=== PATIENT | female | born 1975 | race African-American/Black ===

== ENCOUNTER 2016-07-15 11:37 | Observation (INO) | payer SELFPAY ==
[~2016-07-15] VITALS: Ht 162.6 cm; Wt 90.0 kg
[2016-07-15] VITALS (9 sets, daily range): BP systolic 127–150; BP diastolic 77–88; PULSE 54–87; RESP 14–21; TEMP 98–98.4; O2SAT 97–100
[~2016-07-15 11:37] MED LIST: LORTA5 PO; PERM5CRE TOP; RIVA20 PO
--- NOTE | 2016-07-15 12:08 | PD ---
HPI Chief Complaint: Chest Pain Time Seen by Provider: 12:05 Travel History International Travel<30 days: No Contact w/Intl Traveler<30days: No Traveled to known affect area: No History of Present Illness HPI 41-year-old female with history of hypertension, CAD, previous [place], previous DVT on Coumadin, presents to the emergency department for evaluation. Patient states that this morning when she woke up her hands were "cramped" closed and it was difficult to open them. She states when she got them up and she ate breakfast and her daughter asked her to go for a walk. During the walk she states that she felt a hot feeling from her feet to her neck. She then developed some lightheadedness and some substernal chest pain. She states she felt as though it is difficult to take a deep breath. She noticed that when she went to call for help her left arm seemed to be heavier. Reports a mild episode of nausea without vomiting. No other focal deficits or weakness. No other symptoms to report. Patient states that her home is in [place] and after her primary care provider is. [facility] Past Medical History Cancer: No Cardiovascular Problems: Yes Cerebrovascular Accident: Yes Deep Vein Thrombosis: Yes Endocrine: No Genitourinary: No Hypertension: Yes (DOESNT TAKE MEDS) Immune Disorder: No Musculoskeletal: Yes Neurologic: Yes Psychiatric: No Reproductive: Yes Respiratory: No Migraines: Yes ?: Not LMP: 07/08/15 Menopausal: No : 6 Para: 6 Tubal Ligation: Yes Past Surgical History Abdominal Surgery: Yes (OSMEL GARCIA 2003) Section: Yes Other Surgery: Yes Social History Alcohol Use: No Tobacco Use: No Substance Use: No Allergies-Medications (Allergen,Severity, Reaction): Coded Allergies: Benadryl (Verified Adverse Reaction, Severe, SHAKINESS, 07/15/16) Ibuprofen (Verified Adverse Reaction, Severe, 07/15/16) JITTERY & NAUSEA Reported Meds & Prescriptions Reported Meds & Active Scripts Active Ferrous Sulfate 325 Mg Tab 325 Mg PO DAILY Reported Trazodone (Trazodone HCl) 100 Mg Tab Unknown Dose PO HS Atorvastatin (Atorvastatin Calcium) 40 Mg Tab 40 Mg PO HS Levetiracetam 500 Mg Tab 500 Mg PO BID Metoprolol Tartrate 25 Mg Tab 25 Mg PO DAILY Gabapentin 100 Mg Cap 100 Mg PO TID Lisinopril 2.5 Mg Tab 2.5 Mg PO DAILY Warfarin 10 Mg Tab 10 Mg PO DAILY Review of Systems Except as stated in HPI: all other systems reviewed are Neg Physical Exam Narrative GENERAL: Well-nourished female patient, ambulatory and in no acute distress SKIN: Warm and dry. HEAD: Atraumatic. Normocephalic. EYES: Pupils equal and round. No scleral icterus. No injection or drainage. ENT: No nasal bleeding or discharge. Mucous membranes pink and moist. NECK: Trachea midline. No JVD. CARDIOVASCULAR: Regular rate and rhythm. No murmur appreciated. RESPIRATORY: No accessory muscle use. Clear to auscultation. Breath sounds equal bilaterally. GASTROINTESTINAL: Abdomen soft, non-tender, nondistended. Hepatic and splenic margins not palpable. MUSCULOSKELETAL: No obvious deformities. No clubbing. No cyanosis. No edema. NEUROLOGICAL: Awake and alert. No obvious cranial nerve deficits. Motor grossly within normal limits. Normal speech. PSYCHIATRIC: Appropriate mood and affect; insight and judgment normal. Data Data Last Documented VS Vital Signs Date Time Temp Pulse Resp B/P Pulse Ox O2 Delivery O2 Flow Rate FiO2 07/15/16 13:19 62 18 129/86 100 Room Air 07/15/16 11:43 98.4 Orders Electrocardiogram (07/15/16 12:03) Basic Metabolic Panel (Bmp) (07/15/16 12:03) Ckmb (Isoenzyme) Profile (07/15/16 12:03) Complete Blood Count With Diff (07/15/16 12:03) Magnesium (Mg) (07/15/16 12:03) Prothrombin Time / Inr (Pt) (07/15/16 12:03) Act Partial Throm Time (Ptt) (07/15/16 12:03) Troponin I (07/15/16 12:03) Chest, Single Ap (07/15/16 12:03) Calcium (07/15/16 12:03) CKMB (07/15/16 12:07) CKMB% (07/15/16 12:07) Cta Thor Abd Aorta W Iv C W3d (07/15/16 ) Beta Hcg (Quant/Titer) (07/15/16 13:15) Ct Brain W/O Iv Contrast(Rout) (07/15/16 ) Iohexol 350 Inj (Omnipaque 350 Inj) (07/15/16 14:48) Admit Order (Ed Use Only) (07/15/16 15:14) Labs Laboratory Tests Test 07/15/16 12:07 White Blood Count 3.9 TH/MM3 Red Blood Count 4.12 MIL/MM3 Hemoglobin 10.4 GM/DL Hematocrit 32.1 % Mean Corpuscular Volume 77.9 FL Mean Corpuscular Hemoglobin 25.1 PG Mean Corpuscular Hemoglobin 32.3 % Concent Red Cell Distribution Width 18.6 % Platelet Count 263 TH/MM3 Mean Platelet Volume 9.2 FL Neutrophils (%) (Auto) 43.6 % Lymphocytes (%) (Auto) 42.7 % Monocytes (%) (Auto) 8.0 % Eosinophils (%) (Auto) 4.6 % Basophils (%) (Auto) 1.1 % Neutrophils # (Auto) 1.7 TH/MM3 Lymphocytes # (Auto) 1.7 TH/MM3 Monocytes # (Auto) 0.3 TH/MM3 Eosinophils # (Auto) 0.2 TH/MM3 Basophils # (Auto) 0.0 TH/MM3 CBC Comment DIFF FINAL Differential Comment Prothrombin Time 27.1 SEC Prothromb Time International 2.4 RATIO Ratio Activated Partial 34.5 SEC Thromboplast Time Sodium Level 142 MEQ/L Potassium Level 4.1 MEQ/L Chloride Level 109 MEQ/L Carbon Dioxide Level 26.6 MEQ/L Anion Gap 6 MEQ/L Blood Urea Nitrogen 15 MG/DL Creatinine 1.22 MG/DL Estimat Glomerular Filtration 58 ML/MIN Rate Random Glucose 91 MG/DL Calcium Level 8.6 MG/DL Magnesium Level 2.0 MG/DL Total Creatine Kinase 160 U/L Creatine Kinase MB LESS THAN 0.5 NG/ML Troponin I LESS THAN 0.02 NG/ML Human Chorionic Gonadotropin, LESS THAN 1 Quant MIU/ML MDM Medical Decision Making Medical Screen Exam Complete: Yes Emergency Medical Condition: Yes Medical Record Reviewed: Yes Differential Diagnosis Electrolyte abnormality versus hypoglycemia versus dehydration versus anxiety versus ACS Narrative Course 41-year-old female presents to the emergency department. Patient appears without distress. Workup was initiated in triage. Once a medical bed becomes available, patient will be transferred and care assumed by that provider. Scripts Ferrous Sulfate 325 Mg [id number] Mg PO DAILY #30 TAB Ref 1 Prov:Birgit Collado 07/15/16 Condition: Stable Ivy Ruiz Jul 15, 2016 12:07
[2016-07-15 12:21] LABS: AUTOMATED NEUTROPHIL # 1.7 TH/MM3 (1.8-7.7); BASOPHIL % 1.1 % (0.0-2.0); EOSINOPHIL # 0.2 TH/MM3 (0-0.4); EOSINOPHIL % 4.6 % (0.0-4.0); HEMATOCRIT 32.1 % (35.0-46.0); HEMO FLAGS DIFF FINAL; LYMPH % 42.7 % (9.0-44.0); LYMPHOCYTE # 1.7 TH/MM3 (1.0-4.8); MEAN CELL VOLUME 77.9 FL (80.0-100.0); MEAN CORPUSCULAR HEMOGLOBIN 25.1 PG (27.0-34.0); MEAN CORPUSCULAR HGB CONC 32.3 % (32.0-36.0); NEUT % 43.6 % (16.0-70.0); PLATELET COUNT 263 TH/MM3 (150-450); RED BLOOD COUNT 4.12 MIL/MM3 (4.00-5.30); RED CELL DISTRIBUTION WIDTH 18.6 % (11.6-17.2); WHITE BLOOD COUNT 3.9 TH/MM3 (4.0-11.0)
[2016-07-15 12:32] LABS: APTT (PATIENT) 34.5 SEC (24.3-30.1); INTERNATIONAL NORMALIZED RATIO 2.4 RATIO; PROTHROMBIN TIME - PATIENT 27.1 SEC (9.8-11.6)
[2016-07-15 12:45] LABS: ANION GAP 6 MEQ/L (5-15); BICARBONATE 26.6 MEQ/L (21.0-32.0); BLOOD UREA NITROGEN 15 MG/DL (7-18); CHLORIDE 109 MEQ/L (98-107); GLOMERULAR FILTRATION RATE 58 ML/MIN (>89); POTASSIUM 4.1 MEQ/L (3.5-5.1); SODIUM (NA) 142 MEQ/L (136-145)
[2016-07-15 12:48] LABS: CREATINE KINASE 160 U/L (26-192)
--- NOTE | 2016-07-15 13:00 | RADRPT ---
EXAM DATE/TIME: 07/15/2016 12:40 [facility] COMPARISON: No previous studies available for comparison. INDICATIONS : Chest pain, bilateral hand pain and swelling, numbness, heat sensation in feet, body aching. Patient woke up feeling this way. She stated that these symptoms come and go. MEDICAL HISTORY : None. SURGICAL HISTORY : None. ENCOUNTER: Initial ACUITY: 1 day PAIN SCORE: 10/10 LOCATION: Bilateral chest FINDINGS: Portable AP view of the chest demonstrates a normal-sized cardiac silhouette. No effusion, consolidat ion, or pneumothorax is visualized. The bones and soft tissues demonstrate no acute abnormality. CONCLUSION: No acute cardiopulmonary abnormality is identified. Glenroy Garcia MD on July 15, 2016 at 12:59 Board Certified Radiologist. This report was verified electronically.
[2016-07-15 13:01] LABS: CKMB LESS THAN 0.5 NG/ML (0.5-3.6)
[2016-07-15] MEDS ORDERED: WARF-22 PO (13:10)
[2016-07-15] MEDS ORDERED: LEVE500T8 PO (13:19)
[2016-07-15] MEDS ORDERED: LISI2.5T3 PO (13:19)
[2016-07-15] MEDS ORDERED: GABA100C4 PO (13:19)
[2016-07-15] MEDS ORDERED: METO25TA3 PO (13:19)
[2016-07-15] MEDS ORDERED: ATOR40TA16 PO (13:19)
[2016-07-15] MEDS ORDERED: TRAZ100T4 PO (13:19)
[2016-07-15 13:44] LABS: BETA HCG QUANT LESS THAN 1 MIU/ML (0-5)
[2016-07-15] MEDS ORDERED: IOHEXOL 350 MG/ML 10 ML VIAL (for RAD DIAG) IV ONE (14:48)
--- NOTE | 2016-07-15 14:54 | RADRPT ---
EXAM DATE/TIME: 07/15/2016 14:26 [facility] COMPARISON: CT BRAIN W/O CONTRAST, February 27, 2013, 11:00. INDICATIONS : Dizziness with cephalgia today. RADIATION DOSE: 59.92 CTDIvol (mGy) MEDICAL HISTORY : Hypertension. Deep venous thrombosis. Cerebrovascular disease.Coronary artery disease. SURGICAL HISTORY : None. ENCOUNTER: Initial ACUITY: 1 day PAIN SCALE: 5/10 LOCATION: cranial TECHNIQUE: Multiple contiguous axial images were obtained of the head. Using automated exposure control and adj ustment of the mA and/or kV according to patient size, radiation dose was kept as low as reasonably a chievable to obtain optimal diagnostic quality images. FINDINGS: CEREBRUM: The ventricles are normal for age. No evidence of midline shift, mass lesion, hemorrhage or acute in farction. No extra-axial fluid collections are seen. POSTERIOR FOSSA: The cerebellum and brainstem are intact. The 4th ventricle is midline. The cerebellopontine angle i s unremarkable. EXTRACRANIAL: The visualized portion of the orbits is intact. SKULL: The calvaria is intact. No evidence of skull fracture. CONCLUSION: 1. No acute intracranial abnormality identified. Justin Elder MD on July 15, 2016 at 14:51 Board Certified Radiologist. This report was verified electronically.
--- NOTE | 2016-07-15 15:01 | RADRPT ---
EXAM DATE/TIME: 07/15/2016 14:28 [facility] COMPARISON: CT BRAIN W/O CONTRAST, July 15, 2016, 14:26. INDICATIONS : Chest pain with shortness of breath. IV CONTRAST: 100 cc Omnipaque 350 (iohexol) IV RADIATION DOSE: 17.07 CTDIvol (mGy) MEDICAL HISTORY : Deep venous thrombosis. Cerebrovascular disease. Hypertension.Coronary artery disease. SURGICAL HISTORY : None. ENCOUNTER: Initial ACUITY: 1 day PAIN SCALE: 4/10 LOCATION: chest TECHNIQUE: Volumetric scanning was performed using a multi-row detector CT scanner. The data was post processed with a variety of visualization algorithms including full volume maximum intensity projection, multi -planar sliding thin slab reformation, curved planar reformation, and surface rendering techniques. Using automated exposure control and adjustment of the mA and/or kV according to patient size, radiat ion dose was kept as low as reasonably achievable to obtain optimal diagnostic quality images. FINDINGS: LUNGS: There is no consolidation or pneumothorax. No concerning pulmonary nodule is visualized. No pleural fluid is present. MEDIASTINUM: No abnormally enlarged lymph nodes by CT criteria. No axillary or hilar abnormalities are identified. ABDOMEN: The liver and spleen are free of focal defects. The gallbladder and pancreas demonstrate no abnormali ty. The adrenal glands are normal. The kidneys demonstrate no evidence of solid renal mass or hydrone phrosis. No free fluid or abdominal masses are identified. No para-aortic adenopathy is seen. PELVIS: No evidence of free fluid or pelvic mass. No abnormally enlarged inguinal or retroperitoneal lymph no henrry are present. The bladder is unremarkable. The uterus is enlarged most consistent with fibroids. THORACIC AORTA: The thoracic aortic root is normal with normal branching of the great vessels. There is no evidence of aneurysm or dissection. ABDOMINAL AORTA: The aorta is normal in caliber without aneurysm or dissection. The renal arteries are patent bilater ally. The proximal celiac and superior mesenteric arteries are patent and normal in diameter. PELVIC VESSELS: The internal iliac and external iliac vessels are patent without aneurysm or stenosis. Note is made o f an anatomic variant. The right ovarian and uterine artery terminates from the lumbar circulation. T he left ovarian and uterine arteries originate from an accessory renal. CONCLUSION: 1. The thoracic and abdominal aorta are normal in appearance. 2. No pulmonary embolus is identified. The lungs are clear. 3. Enlarged uterus most consistent with fibroids. Note is made of an anatomic variant with alternate origin of the uterine arteries. Justin Elder MD on July 15, 2016 at 14:53 Board Certified Radiologist. This report was verified electronically.
--- NOTE | 2016-07-15 15:18 | PD ---
Data Data Last Documented VS Vital Signs Date Time Temp Pulse Resp B/P Pulse Ox O2 Delivery O2 Flow Rate FiO2 07/15/16 13:19 62 18 129/86 100 Room Air 07/15/16 11:43 98.4 Orders Electrocardiogram (07/15/16 12:03) Basic Metabolic Panel (Bmp) (07/15/16 12:03) Ckmb (Isoenzyme) Profile (07/15/16 12:03) Complete Blood Count With Diff (07/15/16 12:03) Magnesium (Mg) (07/15/16 12:03) Prothrombin Time / Inr (Pt) (07/15/16 12:03) Act Partial Throm Time (Ptt) (07/15/16 12:03) Troponin I (07/15/16 12:03) Chest, Single Ap (07/15/16 12:03) Calcium (07/15/16 12:03) CKMB (07/15/16 12:07) CKMB% (07/15/16 12:07) Cta Thor Abd Aorta W Iv C W3d (07/15/16 ) Beta Hcg (Quant/Titer) (07/15/16 13:15) Ct Brain W/O Iv Contrast(Rout) (07/15/16 ) Iohexol 350 Inj (Omnipaque 350 Inj) (07/15/16 14:48) Admit Order (Ed Use Only) (07/15/16 15:14) Labs Laboratory Tests Test 07/15/16 12:07 White Blood Count 3.9 TH/MM3 Red Blood Count 4.12 MIL/MM3 Hemoglobin 10.4 GM/DL Hematocrit 32.1 % Mean Corpuscular Volume 77.9 FL Mean Corpuscular Hemoglobin 25.1 PG Mean Corpuscular Hemoglobin 32.3 % Concent Red Cell Distribution Width 18.6 % Platelet Count 263 TH/MM3 Mean Platelet Volume 9.2 FL Neutrophils (%) (Auto) 43.6 % Lymphocytes (%) (Auto) 42.7 % Monocytes (%) (Auto) 8.0 % Eosinophils (%) (Auto) 4.6 % Basophils (%) (Auto) 1.1 % Neutrophils # (Auto) 1.7 TH/MM3 Lymphocytes # (Auto) 1.7 TH/MM3 Monocytes # (Auto) 0.3 TH/MM3 Eosinophils # (Auto) 0.2 TH/MM3 Basophils # (Auto) 0.0 TH/MM3 CBC Comment DIFF FINAL Differential Comment Prothrombin Time 27.1 SEC Prothromb Time International 2.4 RATIO Ratio Activated Partial 34.5 SEC Thromboplast Time Sodium Level 142 MEQ/L Potassium Level 4.1 MEQ/L Chloride Level 109 MEQ/L Carbon Dioxide Level 26.6 MEQ/L Anion Gap 6 MEQ/L Blood Urea Nitrogen 15 MG/DL Creatinine 1.22 MG/DL Estimat Glomerular Filtration 58 ML/MIN Rate Random Glucose 91 MG/DL Calcium Level 8.6 MG/DL Magnesium Level 2.0 MG/DL Total Creatine Kinase 160 U/L Creatine Kinase MB LESS THAN 0.5 NG/ML Troponin I LESS THAN 0.02 NG/ML Human Chorionic Gonadotropin, LESS THAN 1 Quant MIU/ML MDM Supervised Visit with TIKA: Yes Narrative Course I, Dr. Siegel, have reviewed the advance practice practitioner's documentation and am in agreement, met with the patient face to face, made the diagnosis, and the medical decision making was done by me. See her note for further details. Briefly this is a 41-year-old female with history of CAD, [place], DVT on Coumadin, here for evaluation of chest pain, lightheadedness, dyspnea, left arm heaviness , and warm sensation throughout her body. On exam there are no focal neurologic findings. She is awake and alert. Vital signs are within normal limits. EKG shows sinus bradycardia, LVH, no acute ischemic abnormalities. CBC shows WBC 3.9, hemoglobin 10.4, hematocrit 32.1, platelets 263. CMP is unremarkable. Cardiac enzymes are negative. INR is 2.4. Chest x-ray shows no acute disease. CT aorta shows normal thoracic and abdominal aorta, no PE, clear lungs, uterine fibroid. CT head shows no acute intracranial abnormality. Given the patient's history of coronary artery disease, continued chest pain, she will be admitted to the chest pain center for further cardiac evaluation. She was made aware of all findings and is amenable to plan. Diagnosis Primary Impression: Chest pain Qualified Code: R07.9 - Chest pain, unspecified type Condition: Stable Lakhwinder Siegel MD Jul 15, 2016 15:18
[2016-07-15] MEDS ORDERED: NITROGLYCERIN 0.4 MG SL 25 TABS/BTL SL PRN (15:30)
[2016-07-15] MEDS ORDERED: ACETAMINOPHEN 500 MG CPLT PO PRN (15:30)
[2016-07-15] MEDS ORDERED: SODIUM CHLORIDE 0.9% FLUSH 5 ML FLUSH IVF PRN (15:30)
[2016-07-15] MEDS ORDERED: ONDANSETRON HCL 4 MG/2 ML VIAL IV PRN (15:30)
--- NOTE | 2016-07-15 15:59 | EKG ---
Date Performed: 07/15/2016 Time Performed: 12:19:22 PTAGE: 41 years EKG: SINUS BRADYCARDIA MODERATE VOLTAGE CRITERIA FOR LVH, CONSIDER NORMAL VARIANT BORDERLINE ECG NO PREVIOUS TRACING DOCTOR: Gray Giles Interpretating Date/Time 07/15/2016 15:57:40
[2016-07-15 17:35] LABS: CREATINE KINASE 165 U/L (26-192)
[2016-07-15 17:47] LABS: CKMB LESS THAN 0.5 NG/ML (0.5-3.6)
[2016-07-15 18:40] LABS: TRANSFERRIN IRON PROFILE 298 MG/DL (200-360)
[2016-07-15] MEDS ORDERED: FERR325T PO (18:46)
[2016-07-15] MEDS: SODIUM CHLORIDE 0.9% FLUSH 5 ML FLUSH IVF SCH (20:10)
[2016-07-15] MEDS: GABAPENTIN 100 MG CAP PO SCH (20:10)
[2016-07-15] MEDS: levETIRAcetam 500 MG TAB PO SCH (20:10)
[2016-07-15 20:34] LABS: CREATINE KINASE 150 U/L (26-192)
[2016-07-15 20:46] LABS: CKMB LESS THAN 0.5 NG/ML (0.5-3.6)
[2016-07-15] MEDS ORDERED: traZODone HCL 100 MG TAB PO SCH (21:00)
[2016-07-15] MEDS ORDERED: ATORVASTATIN 40 MG TAB PO SCH (21:00)
[2016-07-16 00:26] LABS: RHEUMATOID FACTOR TRIGGER LESS THAN 10.0 IU/ML (0.0-14.9)
[2016-07-16] MEDS ORDERED: ACETAMINOPHEN/HYDROcodone 325 MG/5 MG TAB PO PRN (00:45)
[2016-07-16 03:26] VITALS: PULSE 97
[2016-07-16 04:00] VITALS: BP 131/64; PULSE 64; RESP 18; TEMP 98; O2SAT 97
[2016-07-16 07:00] VITALS: PULSE 68
[2016-07-16 08:34] VITALS: BP 125/67; PULSE 66; RESP 18; TEMP 98; O2SAT 95
--- NOTE | 2016-07-16 08:43 | MH ---
cc: NOELLE VYAS MD DATE OF ADMISSION 07/15/2016 DATE OF 1975 CHIEF COMPLAINT Chest pain. HISTORY OF PRESENT ILLNESS This a 41-year-old patient presents to the emergency room for actually multiple complaints. The patient states for months her body has "attacked from the inside". States that she has heat coming all over her body starting to her feet, proceeds to her head and at that time she develops substernal chest pain described as a sharp pain with some mild shortness of breath and then she develops a migraine headache. As far as the chest pain there is no radiation. Duration varies from different episodes as stated. No known precipitating factors or relieving factors. PAST MEDICAL HISTORY The past medical history: 1. Hypertension. 2. Deep venous thrombosis in 2012. 3. Migraines. 4. Myocardial infarction in 2013. 5. TIAs. 6. Cerebrovascular accident. PAST SURGICAL HISTORY 1. Tubal ligation. 2. Tummy tuck. 3. section. FAMILY HISTORY Is noncontributory for any early onset cardiovascular disease. Mother did have coronary artery disease in her late 60s and underwent CABG x3. She is also a diabetic. SOCIAL HISTORY She is not working at this time. She is a lifelong nonsmoker. Denies any alcohol or illegal drug use. Does have known hypertension is taking cholesterol medications due to her coronary artery disease. No known diabetes. States she is not active due to these episodes cause her to "fall out" at any given time". PAST CARDIAC TESTING She has not had any recent cardiac testing. The last stress test was, she believes, in 2013 and that is when they found that she had a heart attack according to her memory. She does not have a mammal keeper. ALLERGIES SHE IS ALLERGIC TO BENADRYL AND IBUPROFEN. MEDICATIONS Current medications include: 1. Metoprolol 25 mg daily. 2. Lisinopril 2.5 mg daily. 3. Warfarin 10 mg daily. 4. Gabapentin 100 mg t.i.d. 5. Keppra 500 mg t.i.d. 6. Trazodone 100 milligrams q.h.s. p.r.n. 7. Atorvastatin 40 mg q.h.s. REVIEW OF SYSTEMS GENERAL: No recent illness, fevers, chills, recent antibiotic use. No recent travel. No fatigue, malaise or change in appetite. HEENT: No vision changes, nasal congestion or drainage or dysphagia. Reports headaches during the episode as mentioned above which varies and does not necessarily happen daily or weekly. CARDIOVASCULAR: As stated above. No palpitations, intermittent leg pain or dizziness. States her heart attack was found she went to the emergency room and was complaining of palpitations. She underwent a stress test and subsequently was discharged later and then when her primary care provider reviewed her chart she found documentation that suggests she had a heart attack and followed with a mammal keeper shortly after, however, she has not seen a mammal keeper in sometime. RESPIRATORY: No shortness of breath, cough, wheeze or hemoptysis or asthma. ABDOMEN: No bowel changes, constipation, pain, distension, blood in stool or dark stool or nausea or vomiting. Reports a good appetite. No decrease or increase in weight unintentionally. GENITOURINARY: No dysuria or hematuria. EXTREMITIES: No lower leg edema or pain. NEUROLOGICAL: No difficulty with balance, motor or sensory deficits, although she states she cannot walk far distances as the distances seem to bring on these episodes of a warm feeling throughout her body and she becomes quite weak. She was following with a neurologist when living in [facility], has not seen him in a couple of years. He told her that she did not have anything wrong with her neurologically and suggested a psych consult and the patient became quite upset regarding this and has not seen him since. PSYCHIATRIC: No anxiety or depression or suicidal ideation. States she becomes sad that she is unable to work due to her current circumstances with her health. GYNECOLOGIC: Last menstrual period ended today and she has known fibroids and reports heavy period and was scheduled for a partial hysterectomy a couple of years ago, however, then that was cancelled and believes she needs to have followup for that and have that surgery completed. PHYSICAL EXAMINATION VITAL SIGNS: Temperature is 98, pulse 55, respiratory 18, blood pressure 150/88 and 97% on room air. GENERAL: She is alert, well-nourished, well-developed in no acute distress, obese, pleasant -Citizen Of [place] female. HEAD: Normocephalic, atraumatic. EYES: Sclerae clear. Conjunctivae without injection. ENT: Mucous membranes are pink and moist. NECK: Supple. Trachea is midline. CARDIOVASCULAR: She does have a regular rate and rhythm without murmur, rub or gallop. S1-S2. No S3. No S4. No JVD. LUNGS: Clear lungs throughout bilaterally with no crackles, wheeze or rhonchi. She is nonlabored. Symmetrical chest rise. ABDOMEN: Soft, obese, nontender, nondistended. Positive bowel tones. No masses. EXTREMITIES: Pulses +2 x4. No dependent edema. MUSCULOSKELETAL: Normal tone x4. She is nontender in the anterior chest wall. There is no obvious deformities. NEUROLOGICAL: Cranial nerves II-XII grossly intact. Motor strength 5/5. Gait is within normal limits. PSYCHIATRIC: She is alert, oriented x3. Has a pleasant affect, tearful at various times throughout the interview. She is appropriate to mood, insight and judgment. SKIN: Normal turgor, normal texture. Warm and dry. LABORATORY DATA CBC has a hemoglobin of 10.4, hematocrit of 32.1, MCV of 77.9, MCH of 25.1. otherwise unremarkable. Chemistry has a creatinine of 1.22 otherwise unremarkable. First set of troponin is negative. Second is pending. Coagulation has an INR 2.4. The patient is on Coumadin therapy IMAGING Chest x-ray read by radiologist had a conclusion of no acute cardiopulmonary abnormality is identified. Head CT has a conclusion of no acute intracranial abnormality is identified. An aorta CTA has a conclusion of: 1. The thoracic and abdominal aorta are normal. 2. No pulmonary embolism is identified. The lungs are clear. 3. Enlarged uterus most consistent with fibroids. Note is made of an anatomic variant with alternate origin of the uterine arteries. First EKG shows normal sinus bradycardic rhythm with no ST or T segment changes. ASSESSMENT/PLAN 1. Chest pain. Patient has been admitted to the chest pain center. She will undergo three sets of EKGs and cardiac enzymes. She was seen and evaluated by Dr. Noelle Vyas and mammal keeper has recommended after being ruled out with EKGs and troponins to then have a chemical stress test. The patient is agreeable to this plan of care. Naturally if this test comes back unremarkable, she will be discharged home and encouraged to follow up with her primary care provider and establish with a mammal keeper. 2. Anemia. Iron studies have been ordered and also discussed with the patient in length the importance of following with her DISEASE EDUCATION SPECIALIST if she indeed was recommended to have a partial hysterectomy as her bleeding could be leading to her anemia. She does not remember ever being told she is iron deficient. The patient made aware of additional lab work ordered that she can take with her upon discharge. If she is discharged tomorrow she is a highly concerned that she may have lupus or rheumatoid disease. Therefore an KALA and rheumatoid factor were ordered. Again this is for her to take with her upon discharge and made the patient aware that we only start the process for further evaluation regarding any autoimmune diseases. The patient is agreeable to this plan and is grateful for the initial laboratory workup. Dictated by: REJI Garvin Vernell Mackey/SAMMY /4:58 PM /8:43 AM
[2016-07-16] MEDS: GABAPENTIN 100 MG CAP PO SCH ×2 (08:55→13:23)
[2016-07-16] MEDS: levETIRAcetam 500 MG TAB PO SCH (08:55)
[2016-07-16] MEDS: SODIUM CHLORIDE 0.9% FLUSH 5 ML FLUSH IVF SCH (08:56)
[2016-07-16] MEDS ORDERED: ASPIRIN 325 MG TAB PO SCH (09:00)
[2016-07-16] MEDS ORDERED: METOPROLOL TARTRATE 25 MG TAB PO SCH (09:00)
[2016-07-16] MEDS ORDERED: LISINOPRIL 5 MG TAB PO SCH (09:00)
[2016-07-16] MEDS ORDERED: REGADENOSON INJ 0.4 MG/5 ML SYR ONE (10:06)
--- NOTE | 2016-07-16 11:46 | RADRPT ---
EXAM DATE/TIME: 07/16/2016 09:44 [facility] COMPARISON: CTA THORACIC ABDOMINAL AORTA W 3D RECON, July 15, 2016, 14:28. CHEST SINGLE AP, July 15, 2016, 12:40. INDICATIONS : Left sided chest pain and lightheadedness for one day. Angina. Myocardial infarction. DOSE: 25.4 mCi Tc99m Myoview at stress. 8.7 mCi Tc99m Myoview at rest. 0.4 mg Lexiscan STRESS SYMPTOMS: Headache. EJECTION FRACTION: 65% MEDICAL HISTORY : Cardiovascular disease. Hypertension. Cerebrovascular disease. SURGICAL HISTORY : section. Tubal ligation. ENCOUNTER: Initial ACUITY: 1 day PAIN SCALE: 4/10 LOCATION: Left chest TECHNIQUE: The patient underwent pharmacologic stress with infusion of prescribed dose. Continuous ECG tracing was monitored during stress. Gated SPECT imaging was performed after stress and conventional SPECT i maging was performed at rest. The examination was performed on a SPECT/CT scanner, both attenuation and non-corrected datasets were reviewed. FINDINGS: DISTRIBUTION: The maximum perfused segment at stress is in the anterior lateral wall. PERFUSION STUDY: The pattern of perfusion at stress is within normal limits. GATED STUDY: There is intact wall motion and thickening without hypokinetic or dyskinetic segments. CONCLUSION: Normal examination. RISK CATEGORY: Low (<1% Annual Mortality Rate) Geovani Arellano MD on July 16, 2016 at 11:44 Board Certified Radiologist. This report was verified electronically.
--- NOTE | 2016-07-16 12:24 | HHI.DCPOC ---
Discharge Care Plan Diagnosis: (1) Chest pain (2) Hypertension (3) Hx of deep venous thrombosis (4) History of CVA (cerebrovascular accident) (5) Anemia Goals to Promote Your Health * To prevent worsening of your condition and complications * To maintain your health at the optimal level Directions to Meet Your Goals Take your medications as prescribed Follow your dietary instruction Follow activity as directed Keep your appointments as scheduled Take your immunizations and boosters as scheduled If your symptoms worsen call your PCP, if no PCP go to Urgent Care Center or Emergency Room Smoking is Dangerous to Your Health. Avoid second hand smoke Call the 24-hour hour crisis hotline for domestic abuse at [facility] Jul 16, 2016 12:24
[2016-07-16 14:02] LABS: ANA SCREEN POS (NEG)
--- NOTE | 2016-07-16 14:21 | EKG ---
Date Performed: 07/15/2016 Time Performed: 16:37:54 PTAGE: 41 years EKG: SINUS BRADYCARDIA WITH SINUS ARRHYTHMIA \Since previous tracing, no significant change note d ABNORMAL ECG PREVIOUS TRACING : 07/15/2016 12.19 DOCTOR: Vinh Mccauley Interpretating Date/Time 07/16/2016 14:20:49
--- NOTE | 2016-07-16 14:21 | EKG ---
Date Performed: 07/15/2016 Time Performed: 20:01:30 PTAGE: 41 years EKG: SINUS BRADYCARDIA ABNORMAL ECG PREVIOUS TRACING : 07/15/2016 16.37 Since previous tracing, no significant change noted DOCTOR: Vinh Mccauley Interpretating Date/Time 07/16/2016 14:20:33
--- NOTE | 2016-07-16 15:32 | TR ---
Date Performed: 07/16/2016 Time Performed: 10:22:52 DOCTOR: Vinh Mccauley DRUG LIST: CLINICAL HISTORY: CHEST PAIN REASON FOR TEST: CHEST PAIN REASON FOR ENDING: OBSERVATION: CONCLUSION: Lexiscan stress test was performed under standard four minute protocol. Radionuclid e was injected one minute prior to ending the test. No electrocardiographic abormalities were present to suggest ischemia. Nuclear imaging and interpretation are pending. COMMENTS:
[2016-07-16] MEDS ORDERED: WARFARIN SOD 10 MG TAB PO SCH (16:00)
[2016-07-18 13:07] LABS: ANA TITER QUANT 1:40 (NEG)
[2016-07-23] MEDS ORDERED: LISI2.5T3 PO (12:39)
[2016-07-23] MEDS ORDERED: WARF-22 PO ×2 (12:39→16:50)
[2016-07-23] MEDS ORDERED: LEVE500T8 PO (12:40)
[2016-07-23] MEDS ORDERED: GABA100C4 PO (12:40)
[2016-07-23] MEDS ORDERED: ATOR40TA16 PO (12:40)
[2016-07-23] MEDS ORDERED: METO25TA3 PO (12:40)
[2016-09-17] MEDS ORDERED: GABA100C4 PO (07:54)
[2016-09-17] MEDS ORDERED: LEVE500T8 PO (07:54)
[2016-09-17] MEDS ORDERED: METO25TA3 PO (07:54)
[2016-09-17] MEDS ORDERED: ATOR40TA16 PO (07:54)
[2016-09-17] MEDS ORDERED: LISI2.5T3 PO (07:54)
== END 2016-07-16 15:35 | disposition home or self-care (01) ==
LOC: NEPE 11:37 → NEDH 15:16 → NEPHCDU 19:28
PROVIDERS: ADMIT Internal Medicine Interventional Cardiology; ATTEND Internal Medicine Interventional Cardiology
DX: R07.9 Chest pain, unspecified (principal); I10 Essential (primary) hypertension; D64.9 Anemia, unspecified; I25.10 Atherosclerotic heart disease of native coronary artery without angina pectoris; R42 Dizziness and giddiness; R00.1 Bradycardia, unspecified; G43.909 Migraine, unspecified, not intractable, without status migrainosus; I25.2 Old myocardial infarction; Z86.718 Personal history of other venous thrombosis and embolism; Z86.73 Personal history of transient ischemic attack (TIA), and cerebral infarction without residual deficits; Z79.01 Long term (current) use of anticoagulants
CPT/HCPCS: 70450; 71010; 71275; 74174; 78452; 80048; 82550; 82552; 83540; 83550; 83735; 84443; 84484; 84702; 85025; 85610; 85730; 86038; 86039; 86430; 93005; 93017; 99285; A9502; G0378; J2785; Q9967

== ENCOUNTER 2016-07-29 11:20 | Emergency (ER) | payer SELFPAY ==
[~2016-07-29] VITALS: Ht 162.6 cm; Wt 90.0 kg
[~2016-07-29 11:20] MED LIST changes: +ATOR40TA16 PO; +FERR325T PO; +GABA100C4 PO; +LEVE500T8 PO; +LISI2.5T3 PO; -LORTA5 PO; +METO25TA3 PO; -PERM5CRE TOP; -RIVA20 PO; +TRAZ100T4 PO; +WARF-22 PO
[2016-07-29 11:22] VITALS: BP 140/90; PULSE 62; RESP 14; TEMP 97.5; O2SAT 100
--- NOTE | 2016-07-29 12:08 | PD ---
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 Denies fever, chills, nausea, vomiting, abdominal pain. Denies dysuria, urinary frequency urgency, hesitancy, hematuria. Denies unprotected sexual intercourse. Denies oral contraception. Last menstrual period ended approximately 2 days ago. Denies risk of . Has not tried any medications or treatments to alleviate her symptoms. Patient is on Coumadin. Allergies to Benadryl and ibuprofen. No other modifying factors or associated signs and symptoms. PFSH Past Medical History Cancer: No Cardiovascular Problems: Yes Cerebrovascular Accident: Yes (2012; blood clot in carotid; tia's since) Deep Vein Thrombosis: Yes Endocrine: No Genitourinary: No Hypertension: Yes Immune Disorder: No Musculoskeletal: Yes Neurologic: Yes Psychiatric: No Reproductive: Yes Respiratory: No Migraines: Yes Myocardial Infarction: Yes Seizures: No ?: Not Menopausal: No : 6 Para: 6 Tubal Ligation: Yes Past Surgical History Abdominal Surgery: Yes (OSMEL GARCIA 2003) Section: Yes Other Surgery: Yes Social History Alcohol Use: No Tobacco Use: No Substance Use: No Allergies-Medications (Allergen,Severity, Reaction): Coded Allergies: Benadryl (Verified Adverse Reaction, Severe, SHAKINESS, 07/29/16) Ibuprofen (Verified Adverse Reaction, Severe, 07/29/16) JITTERY & NAUSEA Reported Meds & Prescriptions Reported Meds & Active Scripts Active Warfarin 10 Mg Tab 10 Mg PO DAILY Atorvastatin (Atorvastatin Calcium) 40 Mg Tab 40 Mg PO HS Levetiracetam 500 Mg Tab 500 Mg PO BID Metoprolol Tartrate 25 Mg Tab 25 Mg PO BID Gabapentin 100 Mg Cap 100 Mg PO TID Lisinopril 2.5 Mg Tab 2.5 Mg PO DAILY Ferrous Sulfate 325 Mg Tab 325 Mg PO DAILY Reported Trazodone (Trazodone HCl) 100 Mg Tab Unknown Dose PO HS Review of Systems Except as stated in HPI: all other systems reviewed are Neg Physical Exam Narrative GENERAL: Well-nourished, well-developed female patient, in no acute distress; afebrile, nontoxic-appearing SKIN: Warm and dry. HEAD: Atraumatic. Normocephalic. EYES: Pupils equal and round. No scleral icterus. No injection or drainage. ENT: Mucous membranes pink and moist. NECK: Trachea midline. No lymphadenopathy. CARDIOVASCULAR: Regular rate and rhythm. No murmur appreciated. RESPIRATORY: No accessory muscle use. Clear to auscultation. Breath sounds equal bilaterally. GASTROINTESTINAL: Abdomen soft, non-tender, nondistended. Bilateral pelvic region nontender to palpation. Hepatic and splenic margins not palpable. No guarding, rigidity, rebound tenderness. PELVIC: Speculum exam reveals nonedematous and nonerythematous cervix with white green , mucopurulent, foul-smelling discharge. Bimanual exam reveals no palpable masses or adnexa tenderness, no uterine tenderness. Negative cervical motion tenderness. BACK: No CVA tenderness. MUSCULOSKELETAL: No obvious deformities. No clubbing. No cyanosis. No edema. NEUROLOGICAL: Awake and alert. No obvious cranial nerve deficits. Motor grossly within normal limits. Normal speech. PSYCHIATRIC: Appropriate mood and affect; insight and judgment normal. Data Data Last Documented VS Vital Signs Date Time Temp Pulse Resp B/P Pulse Ox O2 Delivery O2 Flow Rate FiO2 07/29/16 11:22 97.5 62 14 140/90 100 Room Air Orders Urinalysis - C+S If Indicated (07/29/16 11:33) Ed Urine Pregnancytest Poc (07/29/16 11:33) Gc And Chlamydia Pcr (07/29/16 12:10) Wet Prep Profile (07/29/16 12:10) Azithromycin Powd Pack (Zithromax Powd P (07/29/16 13:45) Ceftriaxone Inj (Rocephin Inj) (07/29/16 13:45) Lidocaine 1% Inj (50 Ml) (Xylocaine 1% I (07/29/16 13:45) Labs Laboratory Tests Test 07/29/16 07/29/16 11:39 13:30 Urine Color YELLOW Urine Turbidity HAZY Urine pH 5.5 Urine Specific Randall 1.026 Urine Protein TRACE mg/dL Urine Glucose (UA) NEG mg/dL Urine Ketones NEG mg/dL Urine Occult Blood NEG Urine Nitrite NEG Urine Bilirubin NEG Urine Urobilinogen LESS THAN 2.0 MG/DL Urine Leukocyte Esterase NEG Urine RBC 1 /hpf Urine WBC 3 /hpf Urine Squamous Epithelial 10 /hpf Cells Urine Mucus FEW /lpf Microscopic Urinalysis Comment CULT NOT INDICATED Clue Cells (Wet Prep) PRESENT Vaginal Trichomonas (Wet Prep) NONE SEEN Vaginal Yeast (Wet Prep) NONE SEEN MDM Medical Decision Making Medical Screen Exam Complete: Yes Emergency Medical Condition: Yes Medical Record Reviewed: Yes Differential Diagnosis Sexually transmitted infection, sexually chest disease, bacterial vaginosis, yeast infection, UTI Narrative Course 41-year-old female with vaginal irritation, itch, foul-smelling vaginal discharge. She afebrile. Denies fever, chills, nausea, vomiting. Urine is negative. Urinalysis, chlamydia, gonorrhea, wet prep ordered. 1337: Urinalysis negative for infection. Pelvic exam was nonedematous and nonerythematous cervix. No cervical motion tenderness. I do not feel the patient needs to be treated empirically for chlamydia or gonorrhea at this time with the patient is requesting that she be treated. I will treat the patient empirically as requested. Azithromycin and Rocephin ministered in ER. 1417: Positive for bacterial vaginosis. Trichomonas negative. Vaginal yeast negative. Chlamydia and gonorrhea pending; patient empirically treated prior to discharge. Patient takes Coumadin; clindamycin prescribed for home. Instructed patient to follow up with chimney supervisor brick. Patient is medically cleared and stable for discharge. Discussed reasons to return to the emergency department. Instructed patient to follow up with primary care provider. Patient agrees with treatment plan. The patients vital signs are stable and the patient is stable for outpatient follow-up and treatment. Patient discharged home, stable and in no acute distress. Diagnosis Primary Impression: BV (bacterial vaginosis) Referrals: Director Funds Development Primary Care Physician Patient Instructions: Bacterial Vaginosis (ED), General Instructions Departure Forms: Tests/Procedures, Work Release Enter return to work date: Jul 30, 2016 Additional Instructions: Take antibiotic as prescribed; clindamycin is on the $4 list at [facility], otherwise try [facility] Avoid sexual activity for one week while you take the medication Use condoms every time you have sex Follow-up with primary care provider Follow-up with chimney supervisor brick Return to the emergency department immediately with worsening of symptoms Med/Other Pt SpecificInfo: Prescription(s) given Scripts Clindamycin 150 Mg [id number] Mg PO BID 7 Days Ref 0 Prov:Ibeth Srivastava 07/29/16 Disposition: 01 DISCHARGE HOME Condition: Stable Ibeth Srivastava Jul 29, 2016 12:08
[2016-07-29 12:44] LABS: BLOOD, URINE NEG (NEG); COMMENT (UR) CULT NOT INDICATED; CULTURE IF INDICATED CULT NOT INDICATED; GLUCOSE,URINE NEG (NEG); KETONE, URINE NEG (NEG); MUCUS URINE FEW /lpf (OCC); NITRITE,URINE NEG (NEG); PH, URINE 5.5 (5.0-8.5); SQUAMOUS EPITHELIAL CELL URINE 10 /hpf (0-5); URINE COLOR YELLOW (YELLW/STRAW)
[2016-07-29] MEDS ORDERED: AZITHROMYCIN PWD FOR SUSP 1 GM PACKET PO ONE (13:45)
[2016-07-29] MEDS ORDERED: LIDOCAINE HCL 1% 50 ML VIAL IM ONE (13:45)
[2016-07-29] MEDS ORDERED: cefTRIAXone 250 MG VIAL IM ONE (13:45)
[2016-07-29] MEDS ORDERED: CLIN1CAP5 PO (14:22)
[2016-07-29 15:59] LABS: CHLAMYDIA PCR NOT DETECTED (NOT DETECT); NEISSERIA PCR NOT DETECTED (NOT DETECT)
[2016-09-17] MEDS ORDERED: GABA100C4 PO (07:54)
[2016-09-17] MEDS ORDERED: METO25TA3 PO (07:54)
[2016-09-17] MEDS ORDERED: LISI2.5T3 PO (07:54)
[2016-09-17] MEDS ORDERED: LEVE500T8 PO (07:54)
[2016-09-17] MEDS ORDERED: ATOR40TA16 PO (07:54)
== END 2016-07-29 14:35 | disposition home or self-care (01) ==
LOC: NEPB 11:20
DX: N76.0 Acute vaginitis (principal); I10 Essential (primary) hypertension; I25.2 Old myocardial infarction; Z79.01 Long term (current) use of anticoagulants; Z86.73 Personal history of transient ischemic attack (TIA), and cerebral infarction without residual deficits; Z86.718 Personal history of other venous thrombosis and embolism
CPT/HCPCS: 81001; 84703; 87210; 87491; 87591; 96372; 99283; J0696